=== PATIENT | female | born 1960 | race Caucasian/White ===

== ENCOUNTER 2024-10-09 09:01 | Emergency (ER) | payer SELFPAY ==
[2024-10-09 09:06] VITALS: BP 192/105
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
[2024-10-09 11:37] VITALS: BP 167/81
== END 2024-10-09 12:15 | disposition home or self-care (01) ==
LOC: EMR 09:01
PROVIDERS: EMERGENCY PHYSICIAN Emergency Medicine
DX: S16.1XXA Strain of muscle, fascia and tendon at neck level, initial encounter (principal); V89.2XXA Person injured in unspecified motor-vehicle accident, traffic, initial encounter; I10 Essential (primary) hypertension
CPT/HCPCS: 99284; 70450; 72125